=== PATIENT | male | born 1990 | race Caucasian/White ===

== ENCOUNTER 2017-05-18 09:17 | Emergency (ER) | payer OTHER ==
[~2017-05-18] VITALS: Ht 182.8 cm; Wt 72.6 kg
== END 2017-05-18 11:15 | disposition home or self-care (01) ==
LOC: ED 09:17
DX: K12.0 Recurrent oral aphthae (principal); Z91.040 Latex allergy status

== ENCOUNTER 2017-07-20 10:48 | Emergency (ER) | payer OTHER ==
[~2017-07-20] VITALS: Ht 180.3 cm; Wt 68.0 kg
[2017-07-20] MEDS ORDERED: ROBITUSSIN DM 105 ML PO (12:05)
[2017-07-20] MEDS ORDERED: AMOXICILLIN500 M2 PO (12:05)
[2017-07-20] MEDS ORDERED: PREDNISONE20 M1 PO (12:05)
== END 2017-07-20 12:27 | disposition home or self-care (01) ==
LOC: ED 10:48
DX: J20.9 Acute bronchitis, unspecified (principal); F17.200 Nicotine dependence, unspecified, uncomplicated; Z88.6 Allergy status to analgesic agent

== ENCOUNTER 2019-02-28 10:37 | Emergency (ER) | payer OTHER ==
[~2019-02-28] VITALS: Ht 177.8 cm; Wt 64.4 kg
[~2019-02-28 10:37] MED LIST: AMOXICILLIN500 M2 PO; PREDNISONE20 M1 PO; ROBITUSSIN DM 105 ML PO
[2019-02-28] MEDS ORDERED: AMOXICILLI400 MG/51 PO (11:41)
== END 2019-02-28 11:57 | disposition home or self-care (01) ==
LOC: ED 10:37
DX: J02.9 Acute pharyngitis, unspecified (principal); Z88.5 Allergy status to narcotic agent; Z79.2 Long term (current) use of antibiotics; Z79.899 Other long term (current) drug therapy

== ENCOUNTER 2019-03-29 09:12 | Emergency (ER) | payer OTHER ==
[~2019-03-29] VITALS: Ht 177.8 cm; Wt 65.8 kg
[~2019-03-29 09:12] MED LIST changes: +AMOXICILLI400 MG/51 PO
[2019-03-29] MEDS ORDERED: AUGMENTIN 875-875 MG PO (09:52)
== END 2019-03-29 09:58 | disposition home or self-care (01) ==
LOC: ED 09:12
DX: J02.0 Streptococcal pharyngitis (principal); Z88.5 Allergy status to narcotic agent; Z79.2 Long term (current) use of antibiotics; Z79.899 Other long term (current) drug therapy

== ENCOUNTER 2019-04-29 09:11 | Emergency (ER) | payer OTHER ==
[~2019-04-29] VITALS: Ht 177.8 cm; Wt 63.0 kg
[~2019-04-29 09:11] MED LIST changes: +AUGMENTIN 875-875 MG PO
[2019-04-29] MEDS ORDERED: DELTASONE20 M1 PO (09:46)
[2019-04-29] MEDS ORDERED: CLARITIN10 MG PO (09:46)
[2019-04-29] MEDS ORDERED: FLONASE ALLERG9.9 ML NAS (09:46)
== END 2019-04-29 09:19 | disposition home or self-care (01) ==
LOC: ED 09:11
DX: J02.9 Acute pharyngitis, unspecified (principal); Z88.6 Allergy status to analgesic agent

== ENCOUNTER 2020-02-26 19:30 | Emergency (ER) | payer OTHER ==
[~2020-02-26] VITALS: Ht 177.8 cm; Wt 68.0 kg
[~2020-02-26 19:30] MED LIST changes: +CLARITIN10 MG PO; +DELTASONE20 M1 PO; +FLONASE ALLERG9.9 ML NAS
== END 2020-02-26 20:56 | disposition home or self-care (01) ==
LOC: ED 19:30
DX: R05 Cough (principal); Z88.5 Allergy status to narcotic agent; Z79.899 Other long term (current) drug therapy

== ENCOUNTER 2020-03-10 11:34 | Emergency (ER) | payer OTHER ==
[~2020-03-10] VITALS: Ht 177.8 cm; Wt 68.0 kg
[2020-03-10] MEDS ORDERED: AMOXICILLIN500 M2 PO (12:55)
== END 2020-03-10 13:05 | disposition home or self-care (01) ==
LOC: ED 11:34
DX: J02.9 Acute pharyngitis, unspecified (principal); R05 Cough; Z88.6 Allergy status to analgesic agent

== ENCOUNTER 2020-07-14 12:08 | Emergency (ER) | payer OTHER ==
[~2020-07-14] VITALS: Wt 68.0 kg
== END 2020-07-14 13:00 | disposition home or self-care (01) ==
LOC: ED 12:08
DX: H01.004 Unspecified blepharitis left upper eyelid (principal); Z88.6 Allergy status to analgesic agent

== ENCOUNTER 2020-08-13 09:48 | Emergency (ER) | payer OTHER ==
[2020-08-13] MEDS ORDERED: ERYTHROMYCIN OPH1 GM OPH (10:39)
== END 2020-08-13 10:55 | disposition home or self-care (01) ==
LOC: ED 09:48
DX: H00.011 Hordeolum externum right upper eyelid (principal); Z88.6 Allergy status to analgesic agent

== ENCOUNTER 2022-08-31 20:56 | Emergency (ER) | payer OTHER ==
[~2022-08-31] VITALS: Ht 180.3 cm; Wt 72.6 kg
[~2022-08-31 20:56] MED LIST changes: +ERYTHROMYCIN OPH1 GM OPH
[2022-08-31] MEDS ORDERED: ERYTHROMYCIN OPH1 GM OPH (22:34)
== END 2022-08-31 23:04 | disposition home or self-care (01) ==
LOC: ED 20:56
DX: H00.014 Hordeolum externum left upper eyelid (principal); Z88.6 Allergy status to analgesic agent

== ENCOUNTER 2022-09-25 23:08 | Emergency (ER) | payer OTHER ==
[2022-09-25] MEDS ORDERED: AMOXICILLI400 MG/51 PO ×2 (23:29)
[2022-09-26] MEDS ORDERED: AMOXICILLI400 MG/51 PO (12:46)
== END 2022-09-25 23:40 | disposition home or self-care (01) ==
LOC: ED 23:08
DX: J02.9 Acute pharyngitis, unspecified (principal); Z88.5 Allergy status to narcotic agent

== ENCOUNTER 2022-10-20 22:28 | Emergency (ER) | payer OTHER ==
[~2022-10-20] VITALS: Ht 180.3 cm; Wt 77.1 kg
== END 2022-10-21 00:36 | disposition home or self-care (01) ==
LOC: ED 22:28
DX: J06.9 Acute upper respiratory infection, unspecified (principal); Z88.8 Allergy status to other drugs, medicaments and biological substances

== ENCOUNTER 2022-12-23 00:23 | Emergency (ER) | payer OTHER ==
[~2022-12-23] VITALS: Ht 180.3 cm; Wt 79.4 kg
[2022-12-23] MEDS ORDERED: AMOXICILLI400 MG/51 PO (00:44)
[2022-12-24] MEDS ORDERED: CEPHALEXIN500 M1 PO (02:18)
[2022-12-24] MEDS ORDERED: Bactroban Oint22 GM T (02:18)
== END 2022-12-23 01:03 | disposition home or self-care (01) ==
LOC: ED 00:23
DX: J02.8 Acute pharyngitis due to other specified organisms (principal); Z88.5 Allergy status to narcotic agent

== ENCOUNTER 2022-12-23 23:54 | Emergency (ER) | payer OTHER ==
[~2022-12-23] VITALS: Ht 177.8 cm; Wt 90.7 kg
[2022-12-24] MEDS ORDERED: CEPHALEXIN500 M1 PO (02:18)
[2022-12-24] MEDS ORDERED: Bactroban Oint22 GM T (02:18)
== END 2022-12-24 02:21 | disposition home or self-care (01) ==
LOC: ED 23:54
DX: L01.02 Bockhart's impetigo (principal); Z88.5 Allergy status to narcotic agent

== ENCOUNTER 2023-02-12 21:49 | Emergency (ER) | payer OTHER ==
[~2023-02-12] VITALS: Ht 180.3 cm
[~2023-02-12 21:49] MED LIST changes: +Bactroban Oint22 GM T; +CEPHALEXIN500 M1 PO
[2023-02-12 22:46] LABS: BASO % 0.5 % (0.0-1.0); EOS % 0.5 % (1.0-4.0); HEMATOCRIT 42.1 % (42.0-52.0); LYMPH # 0.8 10*3/uL (1.3-4.4); LYMPH % 9.2 % (27.0-41.0); MEAN CELL VOLUME 89.2 fl (80.0-94.0); MEAN CORPUSCULAR HGB 30.3 pg (27.0-31.0); MEAN PLATELET VOLUME 10.2 fl (9.6-12.3); MONO # 0.8 10*3/uL (0.1-1.0); MONO % 9.7 % (3.0-9.0); NEUT % 79.9 % (47.0-73.0); PLATELET COUNT AUTOMATED 166 10*3/uL (130-400); RED BLOOD COUNT 4.72 10*6/uL (4.50-5.90); RED CELL DISTRI WIDTH 12.4 % (0-14.5); WHITE BLOOD COUNT 8.7 10*3/uL (4.8-10.8)
[2023-02-12 23:19] LABS: ALKALINE PHOSPHATASE 97 U/L (46-116); BUN 11 mg/dl (9-23); CHLORIDE 107 mmol/L (98-107); POTASSIUM 3.7 mmol/L (3.4-5.1); SGPT/ALT 14 U/L (10-49); TOTAL PROTEIN 6.7 gm/dL (6.0-8.0)
[2023-02-12 23:26] LABS: BILIRUBIN Negative (Negative); BLOOD Negative (Negative); CLARITY Clear (Clear); COLOR Yellow (Yellow); GLUCOSE Negative (Negative); KETONE 2+ (Negative); LEUKO ESTERASE Negative (Negative); NITRITE Negative (Negative); SPECIFIC GRAVITY 1.025 (1.001-1.030)
[2023-02-12 23:44] LABS: HYALINE CAST 0-2; MUCOUS 2+; RBC 0-2 rbc/hpf (0-2)
[2023-02-13] MEDS ORDERED: ZITHROMAX250 MG PO (01:19)
== END 2023-02-13 01:57 | disposition home or self-care (01) ==
LOC: ED 21:49
PROVIDERS: Emergency Medicine
DX: U07.1 COVID-19 (principal); Z88.5 Allergy status to narcotic agent

== ENCOUNTER 2023-09-10 12:04 | Emergency (ER) | payer OTHER ==
[~2023-09-10] VITALS: Ht 180.3 cm; Wt 72.6 kg
[~2023-09-10 12:04] MED LIST changes: +ZITHROMAX250 MG PO
[2023-09-10] MEDS ORDERED: CEPHALEXIN250 MG/5 M PO (12:26)
[2023-09-11] MEDS ORDERED: MELOXICAM15 MG PO ×2 (13:56→14:16)
[2023-09-11] MEDS ORDERED: ANUSOL HC30 GM PO ×2 (13:56→14:16)
[2023-09-11] MEDS ORDERED: COLACE 2-IN-11 EACH PO ×2 (13:56→14:16)
== END 2023-09-10 12:29 | disposition home or self-care (01) ==
LOC: ED 12:04
DX: K62.89 Other specified diseases of anus and rectum (principal); Z88.5 Allergy status to narcotic agent; Z87.891 Personal history of nicotine dependence

== ENCOUNTER 2023-09-11 12:59 | Emergency (ER) | payer OTHER ==
[~2023-09-11] VITALS: Ht 180.3 cm; Wt 72.6 kg
[~2023-09-11 12:59] MED LIST changes: +CEPHALEXIN250 MG/5 M PO
[2023-09-11] MEDS ORDERED: MELOXICAM15 MG PO ×2 (13:56→14:16)
[2023-09-11] MEDS ORDERED: COLACE 2-IN-11 EACH PO ×2 (13:56→14:16)
[2023-09-11] MEDS ORDERED: ANUSOL HC30 GM PO ×2 (13:56→14:16)
== END 2023-09-11 14:09 | disposition home or self-care (01) ==
LOC: ED 12:59
DX: K64.4 Residual hemorrhoidal skin tags (principal); Z88.5 Allergy status to narcotic agent

== ENCOUNTER 2024-01-10 18:16 | Emergency (ER) | payer OTHER ==
[~2024-01-10] VITALS: Ht 180.3 cm; Wt 74.8 kg
[~2024-01-10 18:16] MED LIST changes: +ANUSOL HC30 GM PO; +COLACE 2-IN-11 EACH PO; +MELOXICAM15 MG PO
[2024-01-10] MEDS ORDERED: PREDNISONE50 MG PO (18:43)
[2024-01-10] MEDS ORDERED: Dexamethasone Sodium Phospha 20 MG/5 ML VIAL IM ONE (18:45)
== END 2024-01-10 19:10 | disposition home or self-care (01) ==
LOC: ED 18:16
DX: B34.9 Viral infection, unspecified (principal); Z88.5 Allergy status to narcotic agent; Z79.2 Long term (current) use of antibiotics; Z79.899 Other long term (current) drug therapy

== ENCOUNTER 2024-01-21 18:55 | Inpatient (IN) | payer OTHER ==
[~2024-01-21] VITALS: Ht 172.7 cm; Wt 79.4 kg
[~2024-01-21 18:55] MED LIST changes: +PREDNISONE50 MG PO
[2024-01-21 19:29] VITALS: BP 143/83
[2024-01-21 20:09] LABS: BASO # 0.1 10*3/uL (0.0-0.1); BASO % 0.3 % (0.0-1.0); HEMATOCRIT 45.7 % (42.0-52.0); LYMPH # 2.3 10*3/uL (1.3-4.4); LYMPH % 10.4 % (27.0-41.0); MEAN CELL VOLUME 91.2 fl (80.0-94.0); MEAN CORPUSCULAR HGB 30.5 pg (27.0-31.0); MEAN CORPUSCULAR HGB CONC 33.5 g/dl (33.0-37.0); MEAN PLATELET VOLUME 10.1 fl (9.6-12.3); MONO # 1.4 10*3/uL (0.1-1.0); MONO % 6.2 % (3.0-9.0); NEUT # 18.2 10*3/uL (2.3-7.9); NEUT % 82.3 % (47.0-73.0); PLATELET COUNT AUTOMATED 260 10*3/uL (130-400); RED BLOOD COUNT 5.01 10*6/uL (4.50-5.90); RED CELL DISTRI WIDTH 12.3 % (0-14.5); WHITE BLOOD COUNT 22.1 10*3/uL (4.8-10.8)
[2024-01-21 20:25] LABS: ALKALINE PHOSPHATASE 114 U/L (46-116); BUN 10 mg/dl (9-23); CHLORIDE 102 mmol/L (98-107); SGPT/ALT 34 U/L (5-49); TOTAL PROTEIN 7.2 gm/dL (6.0-8.0)
[2024-01-21] MEDS ORDERED: SODIUM CHLORIDE 0.9% 1,000 ML IV SCH (21:00)
[2024-01-21] MEDS ORDERED: Vancomycin Hydrochloride 250 ML IV ONE (21:55)
[2024-01-21] MEDS ORDERED: LORazepam 1 MG TAB PO PRN (21:55)
[2024-01-21] MEDS ORDERED: Piperacillin Sodium/Tazobact 50 ML IV ONE (21:55)
[2024-01-21] MEDS ORDERED: ACETAMINOPHEN 325 MG TAB PO PRN (22:05)
[2024-01-21] MEDS ORDERED: Ondansetron Hydrochloride 4 MG/2 ML VIAL IV PRN (22:05)
[2024-01-21 23:16] VITALS: BP 120/75
[2024-01-22] MEDS ORDERED: VANCOMYCIN/WATER FOR INJ (PEG) 250 ML IV SCH (01:00)
[2024-01-22] MEDS ORDERED: diphenhydrAMINE hydrochloride 50 MG/ML VIAL IV ONE (03:00)
[2024-01-22] MEDS ORDERED: Piperacillin Sodium/Tazobact 50 ML IV SCH (06:00)
[2024-01-22 06:06] LABS: BASO # 0.1 10*3/uL (0.0-0.1); BASO % 0.5 % (0.0-1.0); EOS # 0.1 10*3/uL (0.0-0.4); EOS % 0.5 % (1.0-4.0); HEMATOCRIT 44.5 % (42.0-52.0); LYMPH # 2.5 10*3/uL (1.3-4.4); LYMPH % 22.5 % (27.0-41.0); MEAN CELL VOLUME 92.9 fl (80.0-94.0); MEAN CORPUSCULAR HGB 31.3 pg (27.0-31.0); MEAN CORPUSCULAR HGB CONC 33.7 g/dl (33.0-37.0); MEAN PLATELET VOLUME 10.3 fl (9.6-12.3); MONO # 0.9 10*3/uL (0.1-1.0); MONO % 8.5 % (3.0-9.0); NEUT # 7.5 10*3/uL (2.3-7.9); NEUT % 67.5 % (47.0-73.0); PLATELET COUNT AUTOMATED 235 10*3/uL (130-400); RED BLOOD COUNT 4.79 10*6/uL (4.50-5.90); RED CELL DISTRI WIDTH 12.5 % (0-14.5); WHITE BLOOD COUNT 11.1 10*3/uL (4.8-10.8)
[2024-01-22 06:30] VITALS: BP 115/72
[2024-01-22 06:30] LABS: ALKALINE PHOSPHATASE 104 U/L (46-116); BUN 8 mg/dl (9-23); CHLORIDE 109 mmol/L (98-107); POTASSIUM 4.3 mmol/L (3.4-5.1); SGPT/ALT 28 U/L (5-49); TOTAL PROTEIN 6.4 gm/dL (6.0-8.0)
[2024-01-22 07:27] VITALS: BP 118/78
[2024-01-22] MEDS ORDERED: Enoxaparin Sodium 40 MG/0.4 ML SYR SC SCH (10:00)
[2024-01-22 11:39] VITALS: BP 109/67
[2024-01-22] MEDS ORDERED: ACETAMINOPHEN 325 MG/10.15 ML UDC PO PRN (12:25)
[2024-01-22] MEDS ORDERED: DOXYCYCLIN25 MG/5 ML PO ×2 (12:44→15:10)
[2024-01-22 15:45] VITALS: BP 95/62
[2024-01-22 17:02] VITALS: BP 110/67
[2024-01-22 18:50] VITALS: BP 118/66
== END 2024-01-22 20:34 | disposition home or self-care (01) | DRG 872 ==
LOC: ED 18:55 → EDHOLD 22:00
PROVIDERS: Internal Medicine; Student in an Organized Health Care Education/Training Program; ADMIT Internal Medicine; ATTEND Internal Medicine
DX: A41.9 Sepsis, unspecified organism (principal); L03.115 Cellulitis of right lower limb; E87.1 Hypo-osmolality and hyponatremia; I10 Essential (primary) hypertension; F17.210 Nicotine dependence, cigarettes, uncomplicated; Z88.6 Allergy status to analgesic agent; Z82.49 Family history of ischemic heart disease and other diseases of the circulatory system; Z71.6 Tobacco abuse counseling

== ENCOUNTER 2024-03-18 21:44 | Emergency (ER) | payer OTHER ==
[~2024-03-18] VITALS: Ht 180.3 cm; Wt 81.3 kg
[~2024-03-18 21:44] MED LIST changes: +DOXYCYCLIN25 MG/5 ML PO
[2024-03-18] MEDS ORDERED: Doxycycline Hyclate 100 MG CAP PO ONE (22:10)
[2024-03-18] MEDS ORDERED: VIBRAMYCIN100 MG PO (22:12)
== END 2024-03-18 22:20 | disposition home or self-care (01) ==
LOC: ED 21:44
DX: L03.115 Cellulitis of right lower limb (principal); F17.210 Nicotine dependence, cigarettes, uncomplicated; Z88.5 Allergy status to narcotic agent

== ENCOUNTER 2024-04-15 20:32 | Emergency (ER) | payer OTHER ==
[~2024-04-15] VITALS: Ht 180.3 cm; Wt 77.1 kg
[~2024-04-15 20:32] MED LIST changes: +VIBRAMYCIN100 MG PO
[2024-04-15] MEDS ORDERED: Doxycycline Hyclate 100 MG CAP PO ONE (21:00)
[2024-04-15] MEDS ORDERED: VIBRAMYCIN100 MG PO (21:03)
[2024-04-15 21:21] LABS: BASO # 0.1 10*3/uL (0.0-0.1); BASO % 0.6 % (0.0-1.0); EOS # 0.1 10*3/uL (0.0-0.4); EOS % 1.1 % (1.0-4.0); HEMATOCRIT 43.3 % (42.0-52.0); LYMPH # 2.8 10*3/uL (1.3-4.4); LYMPH % 31.3 % (27.0-41.0); MEAN CELL VOLUME 88.9 fl (80.0-94.0); MEAN CORPUSCULAR HGB 30.6 pg (27.0-31.0); MEAN CORPUSCULAR HGB CONC 34.4 g/dl (33.0-37.0); MONO # 0.6 10*3/uL (0.1-1.0); MONO % 6.3 % (3.0-9.0); NEUT # 5.3 10*3/uL (2.3-7.9); NEUT % 60.4 % (47.0-73.0); PLATELET COUNT AUTOMATED 241 10*3/uL (130-400); RED BLOOD COUNT 4.87 10*6/uL (4.50-5.90); RED CELL DISTRI WIDTH 11.8 % (0-14.5); WHITE BLOOD COUNT 8.8 10*3/uL (4.8-10.8)
[2024-04-15 21:39] LABS: BUN 9 mg/dl (9-23); CHLORIDE 104 mmol/L (98-107); POTASSIUM 3.9 mmol/L (3.4-5.1)
== END 2024-04-15 21:25 | disposition home or self-care (01) ==
LOC: ED 20:32
PROVIDERS: Nurse Practitioner Family
DX: L03.116 Cellulitis of left lower limb (principal); F17.210 Nicotine dependence, cigarettes, uncomplicated; Z88.5 Allergy status to narcotic agent

== ENCOUNTER 2024-05-07 22:53 | Emergency (ER) | payer OTHER ==
[~2024-05-07] VITALS: Ht 180.3 cm; Wt 70.3 kg
[2024-05-08] MEDS ORDERED: ZITHROMAX250 MG PO (00:35)
[2024-05-08] MEDS ORDERED: PREDNISONE20 M1 PO (00:35)
== END 2024-05-08 00:43 | disposition home or self-care (01) ==
LOC: ED 22:53
DX: J40 Bronchitis, not specified as acute or chronic (principal); F17.210 Nicotine dependence, cigarettes, uncomplicated; Z88.5 Allergy status to narcotic agent

== ENCOUNTER 2024-07-02 17:42 | Emergency (ER) | payer OTHER ==
[~2024-07-02] VITALS: Ht 180.3 cm; Wt 74.8 kg
[2024-07-02] MEDS ORDERED: AUGMENTIN250 MG/5 M PO (18:34)
[2024-07-02] MEDS ORDERED: Amoxicillin/Clavulanate Pota 600 MG/5 ML 75 ML BOT PO ONE (18:35)
== END 2024-07-02 18:43 | disposition home or self-care (01) ==
LOC: ED 17:42
DX: J02.9 Acute pharyngitis, unspecified (principal); Z88.5 Allergy status to narcotic agent; F17.210 Nicotine dependence, cigarettes, uncomplicated

== ENCOUNTER 2024-11-09 06:21 | Emergency (ER) | payer OTHER ==
[~2024-11-09] VITALS: Ht 180.3 cm; Wt 77.1 kg
[~2024-11-09 06:21] MED LIST changes: +AUGMENTIN250 MG/5 M PO
[2024-11-09] MEDS ORDERED: Amoxicillin/Clavulanate Pota 600 MG/5 ML 75 ML BOT PO ONE (06:35)
[2024-11-09] MEDS ORDERED: AMOX-CLAV600 MG/5 M PO ×2 (06:41)
== END 2024-11-09 06:44 | disposition home or self-care (01) ==
LOC: ED 06:21
DX: J02.0 Streptococcal pharyngitis (principal); F17.210 Nicotine dependence, cigarettes, uncomplicated; Z88.5 Allergy status to narcotic agent

== ENCOUNTER 2025-01-11 13:32 | Emergency (ER) | payer OTHER ==
[~2025-01-11] VITALS: Ht 180.3 cm; Wt 77.1 kg
[~2025-01-11 13:32] MED LIST changes: +AMOX-CLAV600 MG/5 M PO
[2025-01-11] MEDS ORDERED: Doxycycline Hyclate 100 MG CAPSULE PO ONE (16:15)
== END 2025-01-11 16:29 | disposition home or self-care (01) ==
LOC: ED 13:32
DX: L03.115 Cellulitis of right lower limb (principal); F17.200 Nicotine dependence, unspecified, uncomplicated; Z79.899 Other long term (current) drug therapy; Z88.5 Allergy status to narcotic agent

== ENCOUNTER 2025-03-24 00:35 | Emergency (ER) | payer OTHER ==
[~2025-03-24] VITALS: Ht 180.3 cm; Wt 78.0 kg
[2025-03-24] MEDS ORDERED: AMOX-CLAV 875-1 EACH PO (01:52)
[2025-03-24] MEDS ORDERED: Amoxicillin/Clavulanate Pota 875 MG TAB PO ONE (01:55)
== END 2025-03-24 02:11 | disposition home or self-care (01) ==
LOC: ED 00:35
DX: J02.0 Streptococcal pharyngitis (principal); F17.210 Nicotine dependence, cigarettes, uncomplicated; Z88.5 Allergy status to narcotic agent

== ENCOUNTER 2025-04-04 14:40 | Emergency (ER) | payer OTHER ==
[~2025-04-04] VITALS: Ht 180.3 cm; Wt 78.0 kg
[~2025-04-04 14:40] MED LIST changes: +AMOX-CLAV 875-1 EACH PO
[2025-04-04 15:43] LABS: BUN 9 mg/dl (9-23)
[2025-04-04] MEDS ORDERED: PAXLOVID 300-11 EAC3 PO (16:01)
== END 2025-04-04 16:24 | disposition home or self-care (01) ==
LOC: ED 14:40
PROVIDERS: Nurse Practitioner Family
DX: U07.1 COVID-19 (principal); Z79.899 Other long term (current) drug therapy; Z88.5 Allergy status to narcotic agent